=== PATIENT | female | born 1980 | race Caucasian/White ===

== ENCOUNTER → 2025-03-09 | Day surgery (SDC) | payer MEDICAID ==
[~2025-03-09] VITALS: Ht 160 cm; Wt 77.6 kg
[~2025-03-09] MED LIST: BUPIVACAINE HCL/PF 0.5% (5MG/ML) 10ML ONE; FENTANYL CITRATE/PF 50MCG/ML 2ML VIAL ONE; HYDROMORPHONE HCL/PF 1MG/ML INJ IV PRN; HYDROMORPHONE HCL/PF 2MG/ML INJ IV PRN; LABETALOL 5MG/ML 4ML INJ IV PRN; LACTATED RINGERS 1,000 ML IV SCH; LORAZEPAM 2MG/ML UD SYRINGE IV NR; MEPERIDINE HCL/PF 25MG/ML CPJ IV PRN; METOCLOPRAMIDE HCL 10MG/2ML VIAL ONE; MIDAZOLAM HCL 2 MG/2 ML VIAL ONE; ONDANSETRON HCL 4MG/2ML INJ IV PRN; PROPOFOL 200MG/20ML VIAL IV ONE; ROCURONIUM BROMIDE 10MG/ML VIAL 5ML IV ONE; SKIN ADHESIVE 0.7 GM EA TOP ONE
[2025-03-09 06:10] LABS: UCG KIT LOT# 946166; UCG SCREEN NEGATIVE
[2025-03-09] MEDS: THROAT LOZENGES-BENZOCAINE/MENTH/CETYLPYRD CL LOZENGES MM PRN (09:20)
[2025-03-09] MEDS: LORAZEPAM 2MG/ML UD SYRINGE IV PRN (09:20)
== END | disposition home or self-care (01) ==
LOC: OR 05:36
PROVIDERS: ATTEND Surgery
DX: D17.1 Benign lipomatous neoplasm of skin and subcutaneous tissue of trunk (principal); Z79.899 Other long term (current) drug therapy; Z98.890 Other specified postprocedural states
CPT/HCPCS: 21931; 88304; 81025; J3010; J0665; J2060; J2765; J2250; J2704; J3490